=== PATIENT | female | born 1975 | race Two or more races ===

== ENCOUNTER 2025-03-17 18:03 | Emergency (ER) | payer OTHER ==
[~2025-03-17] VITALS: Ht 162.6 cm; Wt 72.6 kg
[2025-03-17 21:12] LABS: BASO % 0.5 % (0.1-1.2); EOS # 0.01 (0.04-0.54); EOS % 0.2 % (0.7-7.0); HEMATOCRIT 41.9 % (34.1-44.9); HEMOGLOBIN 13.9 g/dL (11.2-15.7); LYMPH # 1.49 (1.18-3.74); LYMPH % 36.3 % (19.3-53.1); MEAN CORPUSCULAR HEMOGLOBIN 29.3 pg (25.6-32.2); MONO # 0.51 (0.24-0.82); NEUT # 2.07 (1.56-6.13); NEUT % 50.4 % (34.0-71.1); PLATELET COUNT 133 K/uL (163-369); RED BLOOD COUNT 4.75 M/uL (3.93-5.22); RED CELL DISTRIBUTION WIDTH 12.6 % (11.6-14.4)
[2025-03-17 21:13] LABS: MONO % 12.4 % (4.7-12.5)
[2025-03-17 21:28] LABS: INFLUENZA A AG NEGATIVE (NEGATIVE); INFLUENZA B AG NEGATIVE (NEGATIVE)
[2025-03-17 21:37] LABS: COVID-19 AG POSITIVE (NEGATIVE)
[2025-03-17] MEDS ORDERED: GILTUSS COUGH-118 M1 PO (21:48)
[2025-03-17] MEDS ORDERED: PAXLOVID 300-11 EAC1 PO (21:48)
[2025-03-17] MEDS ORDERED: ACETAMINOPHEN500 M1 PO (21:48)
== END 2025-03-17 22:11 | disposition home or self-care (01) ==
LOC: ER 18:03
PROVIDERS: Preventive Medicine Public Health & General Preventive Medicine
DX: U07.1 COVID-19 (principal)

== ENCOUNTER 2025-07-04 23:20 | Emergency (ER) | payer OTHER ==
[~2025-07-04] VITALS: Ht 162.6 cm; Wt 72.6 kg
[~2025-07-04 23:20] MED LIST: ACETAMINOPHEN500 M1 PO; GILTUSS COUGH-118 M1 PO; PAXLOVID 300-11 EAC1 PO
[2025-07-05] MEDS ORDERED: FAMOTIDINE/PF 20 MG/2 ML VIAL IV PUSH STA (00:35)
[2025-07-05] MEDS ORDERED: PROMETHAZINE HCL 50 MG/ML AMPUL IM STA (00:35)
[2025-07-05] MEDS ORDERED: FAMOTIDINE/PF 20 MG/2 ML VIAL ONE (00:42)
[2025-07-05] MEDS ORDERED: PROMETHAZINE HCL 50 MG/ML AMPUL IM ONE (00:42)
[2025-07-05] MEDS ORDERED: RINGERS SOLUTION,LACTATED 1,000 ML IV ONE (00:45)
[2025-07-05 01:59] LABS: INR 1.04
[2025-07-05 02:25] LABS: ALT/SGPT 20 U/L (12-78); AST/SGOT 12 U/L (15-37); BILIRUBIN TOTAL 0.53 mg/dL (0.3-1.2); BILIRUBIN,CONJUGATED 0.18 mg/dL (0.0-0.2); BUN CREA RATIO 20 (7.0-25.0); CREATININE SERUM 0.59 mg/dL (0.55-1.02); GFR 107.46; GLOBULINA 3.0 G/DL (2.4-3.5); GLUCOSE FASTING 107 mg/dL (65-100); OSMOLALITY SERUM 287 MOSM/KG (275-295)
[2025-07-05 02:41] LABS: BASO % 0.7 % (0.1-1.2); EOS # 0.44 (0.04-0.54); EOS % 5.4 % (0.7-7.0); LYMPH # 1.93 (1.18-3.74); LYMPH % 23.9 % (19.3-53.1); MEAN PLATELET VOLUME 12.10 fl (9.4-12.4); MONO # 0.60 (0.24-0.82); MONO % 7.4 % (4.7-12.5); NEUT # 5.04 (1.56-6.13); NEUT % 62.4 % (34.0-71.1); RED CELL DISTRIBUTION WIDTH 12.5 % (11.6-14.4)
[2025-07-05 02:56] LABS: URINE APPEARANCE Clear; URINE BILIRRUBIN Negative (NEGATIVE); URINE BLOOD Small; URINE COLOR Yellow; URINE GLUCOSE Negative (NEGATIVE); URINE KETONE 15 (NEGATIVE); URINE LEUKOCYTE Small; URINE NITRATE Negative; URINE PROTEIN Negative (NEGATIVE); URINE UROBILINOGEN 0.2 E.U./dl
[2025-07-05 02:57] LABS: HCG QUANTITATIVE < 1 mUI/mL (1-3)
[2025-07-05 03:00] LABS: URINE BACTERIA 956.4 uL (0.0-1933); URINE EPITHELIAL CELLS 21.6 uL (0.0-38.8); URINE RBC 29.4 uL (0.0-20.8); URINE WBC 56.1 uL (0.0-23.2)
[2025-07-05 03:05] LABS: URINE CAST 1.17 uL (0.0-1.40)
[2025-07-05] MEDS ORDERED: PEPCID40 MG PO (05:34)
[2025-07-05] MEDS ORDERED: LEVSIN/SL0.125 MG SL (05:34)
[2025-07-05] MEDS ORDERED: PROTONIX40 MG PO (05:34)
[2025-07-05] MEDS ORDERED: ZOFRAN8 MG PO (05:34)
== END 2025-07-05 05:44 ==
LOC: ER 23:20
PROVIDERS: General Practice
DX: R10.13 Epigastric pain (principal); K80.20 Calculus of gallbladder without cholecystitis without obstruction

== ENCOUNTER 2025-07-09 00:49 | Inpatient (IN) | payer OTHER ==
[~2025-07-09] VITALS: Ht 162.6 cm; Wt 68.0 kg
[~2025-07-09 00:49] MED LIST changes: +LEVSIN/SL0.125 MG SL; +PEPCID40 MG PO; +PROTONIX40 MG PO; +ZOFRAN8 MG PO
--- NOTE | 2025-07-09 01:02 | NUR ---
PACIENTE ALERTA Y ORIENTADA X3. REFIERE VENIR POR DOLOR ABDOMINAL Y VOMITOS X2. SE ESTIMAN VITALES Y SE UBICA.
[2025-07-09] MEDS ORDERED: 0.9 % SODIUM CHLORIDE 1,000 ML IV SCH (01:30)
[2025-07-09] MEDS ORDERED: MORPHINE SULFATE 4 MG/ML CARTRIDGE IV ONE (01:30)
[2025-07-09] MEDS ORDERED: PIPERACILLIN/TAZOBACTAM SODIUM 3.375 GM in DEXTROSE 5 % IN WATER 100 ML IV ONE (01:30)
[2025-07-09] MEDS ORDERED: FAMOtidine 10 MG/ML (4ML VIAL) IV PUSH ONE (01:30)
[2025-07-09] MEDS ORDERED: HYOSCYAMINE SULFATE 0.125 MG TAB.SUBL SL ONE (01:45)
[2025-07-09] MEDS ORDERED: ONDANSETRON HCL 4 MG in 0.9 % SODIUM CHLORIDE 50 ML IV ONE (01:45)
[2025-07-09] MEDS ORDERED: HYOSCYAMINE SULFATE 0.125 MG TAB.SUBL ONE (01:50)
[2025-07-09] MEDS ORDERED: ONDANSETRON HCL 2 MG/ML VIAL ONE (01:50)
[2025-07-09] MEDS ORDERED: PIPERACILLIN/TAZOBACTAM SODIUM 3.375 GM VIAL IV ONE ×3 (01:51→17:18)
[2025-07-09] MEDS ORDERED: FAMOTIDINE/PF 20 MG/2 ML VIAL ONE (01:51)
[2025-07-09 02:30] LABS: URINE APPEARANCE Cloudy; URINE BILIRRUBIN Negative (NEGATIVE); URINE BLOOD Small; URINE COLOR Dark Yellow; URINE GLUCOSE Negative (NEGATIVE); URINE KETONE 15 (NEGATIVE); URINE LEUKOCYTE Moderate; URINE NITRATE Negative; URINE PROTEIN Trace (NEGATIVE); URINE UROBILINOGEN 1.0 E.U./dl
[2025-07-09 02:34] LABS: URINE BACTERIA 8517.6 uL (0.0-1933); URINE EPITHELIAL CELLS 144.9 uL (0.0-38.8); URINE RBC 39.5 uL (0.0-20.8); URINE WBC 233.9 uL (0.0-23.2)
--- NOTE | 2025-07-09 02:38 | NUR ---
PACIENTE ALERTA Y ORIENTADA X 3. SE ORIENTA DE TRATAMIENTO SABINA ORDEN MEDICA. REFIERE ENTENDER. SE CA[place]LI[place], SE TENISHA MUESTRAS Y SE ADMINISTRAN MEDICAMENTOS CON MEDIDAS ASEPTICAS CORRESPONDIENTES. SE COLOCA EN SHALA CON BARANDAS MARY- VADAS POR [place] SEGURIDAD. SE MONITOREA POR CAMBIOS SIGNIFICATIVOS.
[2025-07-09 02:44] LABS: BASO % 0.6 % (0.1-1.2); EOS # 0.33 (0.04-0.54); EOS % 3.9 % (0.7-7.0); LYMPH # 1.36 (1.18-3.74); LYMPH % 16.0 % (19.3-53.1); MEAN PLATELET VOLUME 11.90 fl (9.4-12.4); MONO # 0.47 (0.24-0.82); MONO % 5.5 % (4.7-12.5); NEUT # 6.27 (1.56-6.13); NEUT % 73.8 % (34.0-71.1); RED CELL DISTRIBUTION WIDTH 11.9 % (11.6-14.4)
[2025-07-09 02:53] LABS: ERYTHROCYTE SEDIMENTATION RATE 14 mm/hr (0-30)
[2025-07-09 02:56] LABS: URINE CAST 0.73 uL (0.0-1.40)
[2025-07-09 03:02] LABS: INR 0.98
[2025-07-09 03:17] LABS: ALT/SGPT 27.0 U/L (12-78); AST/SGOT 16.0 U/L (15-37); BILIRUBIN TOTAL 0.74 mg/dL (0.3-1.2); BILIRUBIN,CONJUGATED 0.17 mg/dL (0.0-0.2); BUN CREA RATIO 12.0 (7.0-25.0); CREATININE SERUM 0.84 mg/dL (0.55-1.02); GFR 71.48; GLOBULINA 3.7 G/DL (2.4-3.5); GLUCOSE FASTING 117.0 mg/dL (65-100); OSMOLALITY SERUM 283.0 MOSM/KG (275-295)
[2025-07-09] MEDS ORDERED: MORPHINE SULFATE 4 MG/ML CARTRIDGE IV PRN (06:30)
[2025-07-09] MEDS ORDERED: ONDANSETRON HCL 4 MG in 0.9 % SODIUM CHLORIDE 50 ML IV PRN (06:30)
[2025-07-09 08:21] VITALS: BP 115/74; O2SAT 97
[2025-07-09] MEDS ORDERED: FAMOTIDINE/PF 20 MG in 0.9 % SODIUM CHLORIDE 8 ML IV PUSH SCH ×2 (09:00→16:30)
[2025-07-09] MEDS ORDERED: PIPERACILLIN/TAZOBACTAM SODIUM 3.375 GM in DEXTROSE 5 % IN WATER 100 ML IV SCH (12:00)
[2025-07-09] MEDS ORDERED: ACETAMINOPHEN 325 MG TABLET PO PRN (16:30)
[2025-07-09 17:20] VITALS: BP 112/74; O2SAT 98
[2025-07-09 21:00] VITALS: BP 121/79; O2SAT 100
[2025-07-10 00:56] VITALS: BP 134/89; O2SAT 100
[2025-07-10 08:41] VITALS: BP 102/52; O2SAT 98
[2025-07-10] MEDS ORDERED: DEXTROSE 5 % IN WATER 1,000 ML IV SCH (11:45)
[2025-07-10] MEDS ORDERED: LIDOCAINE HCL 1%/EPINEPHRINE 20ML VIAL IJ ONE (18:01)
[2025-07-10] MEDS ORDERED: BUPIVACAINE HCL/MPF 0.5% 30ML VIAL ONE (18:01)
[2025-07-10] MEDS ORDERED: ISOPROPYL ALCOHOL 30 ML OUNCE TOP ONE (18:27)
[2025-07-10] MEDS ORDERED: ONDANSETRON HCL 2 MG/ML VIAL IV PRN (18:30)
[2025-07-10] MEDS ORDERED: 0.9 % SODIUM CHLORIDE 1,000 ML IV SCH (19:00)
[2025-07-10] MEDS ORDERED: SUGAMMADEX SODIUM 200 MG/2 ML VIAL IV ONE (19:29)
[2025-07-10 21:54] VITALS: BP 126/82; O2SAT 97
[2025-07-10 21:55] LABS: ALT/SGPT 76.0 U/L (12-78); AST/SGOT 98.0 U/L (15-37); BILIRUBIN TOTAL 0.8 mg/dL (0.3-1.2); BUN CREA RATIO 6.0 (7.0-25.0); CREATININE SERUM 0.79 mg/dL (0.55-1.02); GFR 76.72; GLOBULINA 3.0 G/DL (2.4-3.5); GLUCOSE FASTING 166.0 mg/dL (65-100); OSMOLALITY SERUM 279.0 MOSM/KG (275-295)
[2025-07-10] MEDS ORDERED: KETOROLAC TROMETHAMINE 30 MG VIAL IV PRN (23:45)
[2025-07-11 00:07] VITALS: BP 116/74; O2SAT 95
[2025-07-11 08:00] VITALS: BP 143/76; O2SAT 97
[2025-07-11 11:31] LABS: BASO % 0.2 % (0.1-1.2); EOS # 0.01 (0.04-0.54); EOS % 0.1 % (0.7-7.0); LYMPH # 0.65 (1.18-3.74); LYMPH % 5.5 % (19.3-53.1); MEAN PLATELET VOLUME 12.00 fl (9.4-12.4); MONO # 0.35 (0.24-0.82); MONO % 3.0 % (4.7-12.5); NEUT # 10.66 (1.56-6.13); NEUT % 90.9 % (34.0-71.1); RED CELL DISTRIBUTION WIDTH 11.8 % (11.6-14.4)
[2025-07-11] MEDS ORDERED: FAMOTIDINE/PF 20 MG/2 ML VIAL IV NR (12:00)
[2025-07-11] MEDS ORDERED: PIPERACILLIN/TAZOBACTAM SODIUM 3.375 GM in DEXTROSE 5 % IN WATER 100 ML IV SCH (12:00)
[2025-07-11 12:18] LABS: ALT/SGPT 89.0 U/L (12-78); AST/SGOT 80.0 U/L (15-37); BILIRUBIN TOTAL 0.77 mg/dL (0.3-1.2); BUN CREA RATIO 9.0 (7.0-25.0); CREATININE SERUM 0.64 mg/dL (0.55-1.02); GFR 97.83; GLOBULINA 3.2 G/DL (2.4-3.5); GLUCOSE FASTING 136.0 mg/dL (65-100); OSMOLALITY SERUM 279.0 MOSM/KG (275-295)
[2025-07-11 15:25] VITALS: BP 124/79
[2025-07-11] MEDS ORDERED: SUGAMMADEX SODIUM 200 MG/2 ML VIAL IV ONE (16:45)
[2025-07-11] MEDS ORDERED: FAMOTIDINE/PF 20 MG/2 ML VIAL IV SCH (21:00)
[2025-07-12 01:45] VITALS: BP 117/70; O2SAT 96
[2025-07-12 08:00] VITALS: BP 112/71; O2SAT 96
== END 2025-07-12 13:48 | disposition home or self-care (01) | DRG 418 ==
LOC: ER 00:49 → SURH 16:55
PROVIDERS: General Practice; Surgery; ADMIT Internal Medicine; ATTEND Internal Medicine
PROC: 0WQF4ZZ Repair Abdominal Wall, Percutaneous Endoscopic Approach (ICD-10-PCS; 2025-07-10)
PROC: 0FT44ZZ Resection of Gallbladder, Percutaneous Endoscopic Approach (ICD-10-PCS; principal; 2025-07-10 16:30)
DX: K80.10 Calculus of gallbladder with chronic cholecystitis without obstruction (principal); N39.0 Urinary tract infection, site not specified; K80.20 Calculus of gallbladder without cholecystitis without obstruction; K43.9 Ventral hernia without obstruction or gangrene